=== PATIENT | male | born 1980 | race Caucasian/White ===

== ENCOUNTER 2019-11-15 09:53 | Emergency (ER) | payer MEDICARE | END 2019-11-15 10:27 | disposition home or self-care (01) | LOC: BURERS 09:53 | DX: L02.412 Cutaneous abscess of left axilla (principal); K21.9 Gastro-esophageal reflux disease without esophagitis; F43.10 Post-traumatic stress disorder, unspecified; F17.220 Nicotine dependence, chewing tobacco, uncomplicated; F41.9 Anxiety disorder, unspecified; Z79.899 Other long term (current) drug therapy; Z79.84 Long term (current) use of oral hypoglycemic drugs | CPT/HCPCS: 99283 ==

== ENCOUNTER 2019-11-17 11:17 | Emergency (ER) | payer MEDICARE, OTHER ==
[2019-11-17] MEDS ORDERED: Dexamethasone 4 MG TAB ONE (12:32)
[2019-11-18 11:43] LABS: SARS-CoV-2 MS2 Positive; SARS-CoV-2 N Gene Positive; SARS-CoV-2 S Gene Positive; SARS-CoV-2 by NAA DETECTED (NotDetected); SARS-CoV-2 orf1ab Positive
== END 2019-11-17 13:15 | disposition home or self-care (01) ==
LOC: BURERS 11:17
DX: U07.1 COVID-19 (principal); K21.9 Gastro-esophageal reflux disease without esophagitis; E11.9 Type 2 diabetes mellitus without complications; F43.10 Post-traumatic stress disorder, unspecified; F17.220 Nicotine dependence, chewing tobacco, uncomplicated; F41.9 Anxiety disorder, unspecified; Z79.899 Other long term (current) drug therapy; Z79.84 Long term (current) use of oral hypoglycemic drugs
CPT/HCPCS: 87804 ×2; 99284; U0003; 87635; J8540

== ENCOUNTER 2020-05-02 14:21 | Emergency (ER) | payer MEDICARE ==
[2020-05-02] MEDS ORDERED: HYDROcodone/Acetaminophen 5/325 mg Tablet ONE (14:43)
[2020-05-02] MEDS ORDERED: Clindamycin 150 MG CAP ONE (14:44)
== END 2020-05-02 14:53 | disposition home or self-care (01) ==
LOC: BURERS 14:21
DX: G89.18 Other acute postprocedural pain (principal); L76.82 Other postprocedural complications of skin and subcutaneous tissue; E11.9 Type 2 diabetes mellitus without complications; K21.9 Gastro-esophageal reflux disease without esophagitis; F17.220 Nicotine dependence, chewing tobacco, uncomplicated
CPT/HCPCS: 99283

== ENCOUNTER 2020-09-27 11:02 | Emergency (ER) | payer MEDICARE ==
[2020-09-27 11:31] LABS: #Basophils 0.1 thou/uL (0.0-0.2); #Eosinphils 0.1 thou/uL (0.0-0.7); #Lymphocytes 1.7 thou/uL (1.20-3.40); #Monocytes 0.7 thou/uL (0.11-0.59); %Basophils 0.8 % (0.0-1.0); %Eosinophils 1.4 % (0.0-10.0); %Lymphocytes 15.7 % (21.0-51.0); %Neutrophils 75.1 % (42.0-75.0); Hemoglobin 15.1 g/dL (14.0-18.0); Mean Corpuscular Hemoglobin 30.5 pg (27.0-31.0); Mean Corpuscular Volume 87.1 fL (78.0-98.0); Mean Platelet Volume 7.6 fL (7.4-10.4); Platelet Count 235 thou/uL (130-400); RBC Distribution Width 10.7 % (11.5-14.5); Red Blood Cell (RBC) Count 4.95 mill/uL (4.70-6.10); White Blood Cell (WBC) Count 10.6 thou/uL (4.8-10.8)
[2020-09-27 11:42] LABS: ALT (SGPT) 23 U/L (8-55); AST (SGOT) 15 U/L (5-34); Albumin 4.4 g/dL (3.5-5.0); Alkaline Phosphatase 75 U/L (40-110); Anion Gap 13 mmol/L (10-20); BUN (Urea Nitrogen) 12 mg/dL (8.9-20.6); Bilirubin, Total 0.7 mg/dL (0.2-1.2); Calc. Creatinine Clearance 0 mL/min (70-130); Calcium 8.8 mg/dL (7.8-10.44); Carbon Dioxide 25 mmol/L (22-29); Chloride 104 mmol/L (98-107); Glucose 180 mg/dL (70-105); Potassium 4.1 mmol/L (3.5-5.1); Protein, Total 7.4 g/dL (6.0-8.3); Sodium 138 mmol/L (136-145)
[2020-09-27] MEDS ORDERED: Aspirin 325 MG TAB ONE (12:36)
[2020-09-27] MEDS ORDERED: Ketorolac Tromethamine 30 MG/ML VIAL ONE (13:50)
[2020-09-27 14:26] LABS: Troponin I Less than 0.010 ng/mL (< 0.028)
[2020-09-27] MEDS ORDERED: Morphine 4 MG/ML VIAL ONE (14:30)
== END 2020-09-27 14:37 | disposition home or self-care (01) ==
LOC: BURERS 11:02
DX: R07.89 Other chest pain (principal); M25.511 Pain in right shoulder; R06.00 Dyspnea, unspecified; K21.9 Gastro-esophageal reflux disease without esophagitis; E11.9 Type 2 diabetes mellitus without complications; F17.220 Nicotine dependence, chewing tobacco, uncomplicated
CPT/HCPCS: 36415; 71045; 80053; 83880; 84484; 85025; 85379; 93005; 96374; 96375; J1885; J2270

== ENCOUNTER 2021-02-12 15:22 | Emergency (ER) | payer MEDICARE | END 2021-02-12 16:00 | disposition home or self-care (01) | LOC: BURERS 15:22 | DX: S30.0XXA Contusion of lower back and pelvis, initial encounter (principal); W10.8XXA Fall (on) (from) other stairs and steps, initial encounter; E11.9 Type 2 diabetes mellitus without complications; K21.9 Gastro-esophageal reflux disease without esophagitis | CPT/HCPCS: 71046; 72100 ==

== ENCOUNTER 2021-07-13 22:37 | Emergency (ER) | payer MEDICARE, OTHER ==
[2021-07-13] MEDS ORDERED: Iopamidol 370 76% 100 ML VIAL FS ONE (22:38)
[2021-07-13] MEDS ORDERED: Glycopyrrolate 0.4 MG/ 2 ML VIAL ONE (23:06)
[2021-07-13] MEDS ORDERED: Ondansetron PF 4 MG/2 ML Vial ONE (23:06)
[2021-07-13] MEDS ORDERED: Ketorolac Tromethamine 30 MG/ML VIAL ONE (23:06)
[2021-07-13 23:18] LABS: #Basophils 0.1 thou/uL (0.0-0.2); #Eosinphils 0.1 thou/uL (0.0-0.7); #Lymphocytes 2.4 thou/uL (1.20-3.40); #Monocytes 0.5 thou/uL (0.11-0.59); #Neutrophils 7.1 thou/uL (1.40-6.50); %Basophils 1.1 % (0.0-1.0); %Eosinophils 1.1 % (0.0-10.0); %Lymphocytes 23.4 % (21.0-51.0); %Monocytes 5.1 % (0.0-10.0); %Neutrophils 69.3 % (42.0-75.0); Hemoglobin 17.2 g/dL (14.0-18.0); Mean Corpuscular HGB CONC 35.8 g/dL (32.0-36.0); Mean Corpuscular Volume 86.5 fL (78.0-98.0); Mean Platelet Volume 8.7 fL (7.4-10.4); Platelet Count 279 thou/uL (130-400); RBC Distribution Width 10.5 % (11.5-14.5); Red Blood Cell (RBC) Count 5.55 mill/uL (4.70-6.10); White Blood Cell (WBC) Count 10.3 thou/uL (4.8-10.8)
[2021-07-13 23:30] LABS: ALT (SGPT) 75 U/L (8-55); AST (SGOT) 39 U/L (5-34); Albumin 4.6 g/dL (3.5-5.0); Alkaline Phosphatase 110 U/L (40-110); Anion Gap 19 mmol/L (10-20); BUN (Urea Nitrogen) 15 mg/dL (8.9-20.6); Bilirubin, Total 0.5 mg/dL (0.2-1.2); Calc. Creatinine Clearance 0 mL/min (70-130); Calcium 9.4 mg/dL (7.8-10.44); Carbon Dioxide 27 mmol/L (22-29); Chloride 96 mmol/L (98-107); Glucose 366 mg/dL (70-105); Lipase 507 U/L (8-78); Potassium 4.5 mmol/L (3.5-5.1); Protein, Total 7.6 g/dL (6.0-8.3); Sodium 137 mmol/L (136-145)
[2021-07-13] MEDS ORDERED: Fentanyl 100 MCG/2 ML VIAL ONE (23:36)
[2021-07-13] MEDS ORDERED: Famotidine/PF 20 mg/2ml Vial ONE (23:57)
[2021-07-13] MEDS ORDERED: Morphine 4 MG/ML VIAL ONE (23:57)
[2021-07-14] MEDS ORDERED: diphenhydrAMINE 50 MG/ML VIAL ONE ×2 (00:16→00:31)
[2021-07-14] MEDS ORDERED: Fentanyl 100 MCG/2 ML VIAL ONE (01:09)
== END 2021-07-14 01:15 | disposition short-term general hospital (02) ==
LOC: BURERS 22:37
DX: K85.90 Acute pancreatitis without necrosis or infection, unspecified (principal); E11.65 Type 2 diabetes mellitus with hyperglycemia; K21.9 Gastro-esophageal reflux disease without esophagitis; F17.220 Nicotine dependence, chewing tobacco, uncomplicated; Z79.84 Long term (current) use of oral hypoglycemic drugs; Z79.899 Other long term (current) drug therapy
CPT/HCPCS: 36415; 74177; 80053; 83690; 84484; 85025; 96361; 96374; 96375; 96376; J1200; J1885; J2270; J2405; J3010; Q9967; S0028

== ENCOUNTER 2021-10-06 13:53 | Observation (INO) | payer MEDICARE, OTHER ==
[2021-10-06 14:30] LABS: #Basophils 0.1 thou/uL (0.0-0.2); #Eosinphils 0.2 thou/uL (0.0-0.7); #Lymphocytes 2.2 thou/uL (1.20-3.40); #Monocytes 0.4 thou/uL (0.11-0.59); #Neutrophils 5.5 thou/uL (1.40-6.50); %Basophils 1.2 % (0.0-1.0); %Eosinophils 2.1 % (0.0-10.0); %Lymphocytes 26.1 % (21.0-51.0); %Neutrophils 65.6 % (42.0-75.0); Hemoglobin 17.3 g/dL (14.0-18.0); Mean Corpuscular HGB CONC 34.2 g/dL (32.0-36.0); Mean Corpuscular Hemoglobin 30.4 pg (27.0-31.0); Mean Platelet Volume 7.6 fL (7.4-10.4); Platelet Count 218 thou/uL (130-400); RBC Distribution Width 11.4 % (11.5-14.5); Red Blood Cell (RBC) Count 5.69 mill/uL (4.70-6.10); White Blood Cell (WBC) Count 8.4 thou/uL (4.8-10.8)
[2021-10-06 14:43] LABS: ALT (SGPT) 80 U/L (8-55); AST (SGOT) 40 U/L (5-34); Albumin 4.5 g/dL (3.5-5.0); Alkaline Phosphatase 75 U/L (40-110); Anion Gap 17 mmol/L (10-20); BUN (Urea Nitrogen) 18 mg/dL (8.9-20.6); Bilirubin, Total 0.6 mg/dL (0.2-1.2); Calc. Creatinine Clearance 0 mL/min (70-130); Calcium 9.4 mg/dL (7.8-10.44); Carbon Dioxide 27 mmol/L (22-29); Chloride 100 mmol/L (98-107); Estimated GFR 76; Globulin 2.9 g/dL (2.4-3.5); Glucose 242 mg/dL (70-105); Lipase 354 U/L (8-78); Potassium 4.5 mmol/L (3.5-5.1); Protein, Total 7.4 g/dL (6.0-8.3); Sodium 139 mmol/L (136-145)
[2021-10-06] MEDS ORDERED: Morphine 4 MG/ML VIAL ONE ×4 (15:29→22:59)
[2021-10-06 17:07] LABS: Lactic Acid 0.9 mmol/L (0.5-2.2)
[2021-10-06 18:11] VITALS: BMI 33.5
[2021-10-06] MEDS ORDERED: Ondansetron ODT 4 MG TAB SL PRN (18:45)
[2021-10-06] MEDS ORDERED: Ondansetron PF 4 MG/2 ML Vial IVP PRN (18:45)
[2021-10-06] MEDS: Morphine 4 MG/ML VIAL SLOW IVP PRN ×3 (18:54→23:07)
[2021-10-06] MEDS: Lactated Ringer's 1,000 ML IV SCH ×2 (18:55→22:06)
[2021-10-06] MEDS ORDERED: HYDROcodone/Acetaminophen 5/325 mg Tablet PO PRN (20:05)
[2021-10-06] MEDS ORDERED: Dextrose 50% Abboject 50 ML SYRINGE SLOW IVP PRN (20:10)
[2021-10-06] MEDS ORDERED: HumaLOG 300 UNITS/3 ML VIAL SC PRN (20:10)
[2021-10-06] MEDS ORDERED: Dextrose 5% in Water 1,000 ML IV PRN (20:10)
[2021-10-06] MEDS ORDERED: clonazePAM 0.5 MG TAB PO PRN (20:12)
[2021-10-06] MEDS ORDERED: DULoxetine 30 MG CAP PO SCH (21:00)
[2021-10-06] MEDS ORDERED: Aripiprazole 10 MG TAB PO SCH (21:00)
[2021-10-07] MEDS ORDERED: Morphine 4 MG/ML VIAL ONE ×6 (02:07→16:17)
[2021-10-07] MEDS: Morphine 4 MG/ML VIAL SLOW IVP PRN ×4 (02:12→16:21)
[2021-10-07] MEDS: Lactated Ringer's 1,000 ML IV SCH (02:13)
[2021-10-07 05:40] LABS: ALT (SGPT) 117 U/L (8-55); AST (SGOT) 84 U/L (5-34); Albumin 3.6 g/dL (3.5-5.0); Alkaline Phosphatase 62 U/L (40-110); Anion Gap 13 mmol/L (10-20); BUN (Urea Nitrogen) 10 mg/dL (8.9-20.6); Bilirubin, Total 0.6 mg/dL (0.2-1.2); Calc. Creatinine Clearance 0 mL/min (70-130); Calcium 8.4 mg/dL (7.8-10.44); Carbon Dioxide 25 mmol/L (22-29); Chloride 104 mmol/L (98-107); Estimated GFR 112; Globulin 2.2 g/dL (2.4-3.5); Glucose 110 mg/dL (70-105); Lipase 62 U/L (8-78); Potassium 4.4 mmol/L (3.5-5.1); Protein, Total 5.8 g/dL (6.0-8.3); Sodium 138 mmol/L (136-145)
[2021-10-07] MEDS ORDERED: Morphine 4 MG/ML VIAL SLOW IVP SCH (07:15)
[2021-10-07] MEDS ORDERED: Losartan 25 MG TAB PO SCH (09:00)
[2021-10-07] MEDS ORDERED: Enoxaparin Sodium 40 MG/0.4 ML SYRINGE SC SCH (09:00)
[2021-10-07] MEDS ORDERED: Acetaminophen 325 MG TAB PO PRN (12:37)
[2021-10-07 15:41] VITALS: BP 130/86; TEMP 98.2
[2021-10-07] MEDS ORDERED: Iopamidol 370 76% 100 ML VIAL FS ONE (17:31)
== END 2021-10-07 17:32 | disposition home or self-care (01) ==
LOC: BURERS 13:53 → BURMED 17:34 → UNDOADMOB 17:34
PROVIDERS: ADMIT Family Medicine; ATTEND Family Medicine
DX: K85.90 Acute pancreatitis without necrosis or infection, unspecified (principal); E11.9 Type 2 diabetes mellitus without complications; I10 Essential (primary) hypertension; G89.29 Other chronic pain; M54.9 Dorsalgia, unspecified; K21.9 Gastro-esophageal reflux disease without esophagitis; Z79.84 Long term (current) use of oral hypoglycemic drugs; Z79.899 Other long term (current) drug therapy; Z88.2 Allergy status to sulfonamides; Z88.5 Allergy status to narcotic agent; Z88.8 Allergy status to other drugs, medicaments and biological substances; Z20.822 Contact with and (suspected) exposure to COVID-19
CPT/HCPCS: 36415; 36416; 74177; 80053; 83605; 83690; 85025; 96361; 96372; 96376; G0378; J1650; J2270; J7120; Q9967; U0003; U0005